=== PATIENT | female | born 1970 | race Caucasian/White ===

== ENCOUNTER 2022-05-04 01:13 | Emergency (ER) | payer BC ==
[~2022-05-04] VITALS: Ht 160 cm; Wt 81.3 kg
[2022-05-04] MEDS ORDERED: ketorolac trometh inj. 60 MG/2 ML VIAL IM ONE (03:35)
[2022-05-04] MEDS ORDERED: acetaminophen 325mg tablet PO ONE (03:35)
[2022-05-04] MEDS ORDERED: HYDROmorphone 1 mg/ml syringe IM ONE (03:35)
[2022-05-04] MEDS ORDERED: IBUP-1984 PO (04:24)
[2022-05-04] MEDS ORDERED: OXYC-138 PO (04:24)
== END 2022-05-04 04:31 | disposition home or self-care (01) ==
LOC: ER 01:14
DX: M54.42 Lumbago with sciatica, left side (principal); R11.2 Nausea with vomiting, unspecified; R20.0 Anesthesia of skin; Z88.0 Allergy status to penicillin; Z79.899 Other long term (current) drug therapy
CPT/HCPCS: 96372; 99284; J1170; J1885